=== PATIENT | female | born 1955 | race American Indian/Alaskan Native ===

== ENCOUNTER 2016-09-23 20:52 | Emergency (ER) | payer SELFPAY ==
[2016-09-23 21:44] VITALS: BP 227/102
--- NOTE | 2016-09-23 22:25 | Emergency Department Report ---
ED General Adult HPI - General Chief complaint: High BP Stated complaint: TOOTH ABSCESS Time Seen by Provider: 09/23/16 21:43 Source: patient, RN notes reviewed Mode of arrival: Ambulatory Limitations: No Limitations - History of Present Illness Initial comments: This is a 61-year-old female. She is previously known to me. She does not have a primary care doctor. She denies chronic medical conditions. She presents to the ER complaining of dental pain. She indicates the pain is on the right side of her teeth, and it is actually improved. There is no stridor or dysphonia. There is no trismus or malocclusion. No headache, chest pain, neck pain, abdominal pain or shortness of breath. The patient declines pain medication at this time. In the ER, the patient is found to be very hypertensive. She reports that she has been informed of elevated blood pressure in the past, but does not have a formal diagnosis of hypertension/elevated blood pressure. Extensive discussion had with the patient and her . I offered the patient medication to decrease her blood pressure, but she declined. Through shared decision making, myself and the patient feel it is reasonable for the patient to follow-up as an outpatient with the primary care doctor for incidental in a symptomatic elevated blood pressure. The patient understands that even if she is given medication here in the ER, her blood pressure will most likely elevated again. The patient has been informed that long-term complications of hypertension and elevated blood pressure, include stroke, heart attack, disability, and paralysis. The patient prefers to follow-up with an outpatient primary care doctor and she indicates that she will pursue diet and lifestyle modifications as she prefers to not take any prescription medications. -: Gradual Location: head Severity scale (0 -10): 10 Improves with: none Worsens with: none Associated Symptoms: denies other symptoms - Related Data Previous Rx's Medication Instructions Recorded Last Taken Type Chlorhexidine Mouthwash [Peridex] 15 ml MM BID #1 bottle 09/23/16 Unknown Rx Ibuprofen [Motrin] 600 mg PO Q8H PRN #30 tablet 09/23/16 Unknown Rx Allergies Allergy/AdvReac Type Severity Reaction Status Date / Time codeine Allergy Mild Dizziness Verified 09/23/16 21:15 caffeine Allergy Unknown Verified 09/23/16 21:36 procaine HCl [From Novocain] Allergy Unknown Verified 09/23/16 21:40 ED Review of Systems ROS: Stated complaint: TOOTH ABSCESS Other details as noted in HPI Constitutional: denies: fever Eyes: denies: vision change ENT: dental pain Respiratory: denies: cough Cardiovascular: denies: chest pain Gastrointestinal: denies: abdominal pain Genitourinary: as per HPI Musculoskeletal: as per HPI Skin: as per HPI Neurological: as per HPI Psychiatric: as per HPI ED Past Medical Hx - Past Medical History Previous Medical History?: No - Surgical History Past Surgical History?: No - Social History Smoking Status: Never Smoker Substance Use Type: None - Medications Home Medications: Home Medications Medication Instructions Recorded Confirmed Last Taken Type Chlorhexidine Mouthwash [Peridex] 15 ml MM BID #1 bottle 09/23/16 Unknown Rx Ibuprofen [Motrin] 600 mg PO Q8H PRN #30 tablet 09/23/16 Unknown Rx ED Physical Exam - General Limitations: No Limitations General appearance: alert, in no apparent distress - Head Head exam: Present: atraumatic, normocephalic - Eye Eye exam: Present: normal appearance, EOMI. Absent: nystagmus - ENT ENT exam: Present: normal exam, normal orophraynx, mucous membranes moist, other (patient has poor dentition. There is no stridor, dysphonia, trismus or malocclusion.) - Neck Neck exam: Present: normal inspection, full ROM. Absent: tenderness, meningismus - Respiratory Respiratory exam: Present: normal lung sounds bilaterally. Absent: respiratory distress, wheezes, rales, rhonchi, stridor, chest wall tenderness, accessory muscle use, decreased breath sounds, prolonged expiratory - Cardiovascular Cardiovascular Exam: Present: regular rate, normal rhythm, normal heart sounds. Absent: bradycardia, tachycardia, irregular rhythm, systolic murmur, diastolic murmur, rubs, gallop - GI/Abdominal GI/Abdominal exam: Present: soft, normal bowel sounds. Absent: distended, tenderness, guarding, rebound, rigid, pulsatile mass - Extremities Exam Extremities exam: Present: normal inspection, full ROM, normal capillary refill. Absent: pedal edema, joint swelling, calf tenderness - Back Exam Back exam: Present: normal inspection, full ROM. Absent: tenderness, CVA tenderness (R), CVA tenderness (L), muscle spasm, paraspinal tenderness, vertebral tenderness - Neurological Exam Neurological exam: Present: alert, oriented X3, normal gait, other (Extraocular movements intact. Tongue midline. No facial droop. Facial sensation intact to light touch in the V1, V2, V3 distribution bilaterally. 5 and 5 strength in 4 extremities.. Sensation is intact to light touch in 4 extremities.). Absent : motor sensory deficit - Psychiatric Psychiatric exam: Present: normal affect, normal mood - Skin Skin exam: Present: warm, dry, intact, normal color. Absent: rash ED Course Vital Signs 09/23/16 09/23/16 09/23/16 21:01 21:43 21:44 Temperature 99.6 F 99.2 F Pulse Rate 97 H 97 H Respiratory 18 20 20 Rate Blood Pressure 218/126 Blood Pressure 210/106 227/102 [Left] O2 Sat by Pulse 97 99 99 Oximetry - Reevaluation(s) Reevaluation #1: 09/23/16 22:28 as per the [employer] clinical policy on hypertension: Are ED blood pressure readings accurate and reliable for screening asymptomatic patients for hypertension? Level A recommendations. None specified. Level B recommendations. If blood pressure measurements are persistently elevated with a systolic blood pressure greater than 140 mm Hg or diastolic blood pressure greater than 90 mm Hg, the patient should be referred for follow- up of possible hypertension and blood pressure management. Level C recommendations. Patients with a single elevated blood pressure reading may require further screening for hypertension in the outpatient setting. 2. Do asymptomatic patients with elevated blood pressures benefit from rapid lowering of their blood pressure? Level A recommendations. None specified. Level B recommendations. (1) Initiating treatment for asymptomatic hypertension in the ED is not necessary when patients have follow-up; (2) Rapidly lowering blood pressure in asymptomatic patients in the ED is unnecessary and may be harmful in some patients; (3) When ED treatment for asymptomatic hypertension is initiated, blood pressure management should attempt to gradually lower blood pressure and should not be expected to be normalized during the initial ED visit. Critical care attestation.: If time is entered above; I have spent that time in minutes in the direct care of this critically ill patient, excluding procedure time. ED Disposition Clinical Impression: Dentalgia, Elevated blood pressure reading Disposition: DC-01 TO HOME OR SELFCARE Is pt being admited?: No Does the pt Need Aspirin: No Condition: Stable Instructions: Dental Caries (ED), Hypertension (ED) Additional Instructions: Follow up with a dentist as soon as possible. Follow up with a primary care doctor as soon as possible for elevated blood pressure. Long-term complications of hypertension/elevated blood pressure includes stroke, heart attack, disability, , paralysis, loss of quality of life. Return to the ER right away with headaches, fevers, chills, chest pain, shortness of breath, nausea or vomiting, confusion, inability to tolerate liquid feeds, inability to speak or breathe. Prescriptions: Chlorhexidine Mouthwash [Peridex] 15 ml MM BID #1 bottle Ibuprofen [Motrin] 600 mg PO Q8H PRN #30 tablet PRN Reason: Pain Referrals: PRIMARY CAREMD [Primary Care Provider] - 3-5 Days MINGO MENDEZ MD [Staff Physician] - 3-5 Days [facility] [Outside] - 3-5 Days [facility] [Provider Group] - 3-5 Days
== END 2016-09-23 22:38 | disposition home or self-care (01) ==
LOC: ED 20:52
DX: K08.89 Other specified disorders of teeth and supporting structures (principal); I10 Essential (primary) hypertension; Z88.5 Allergy status to narcotic agent; Z91.02 Food additives allergy status
CPT/HCPCS: 99282

== ENCOUNTER 2018-07-06 11:33 | Emergency (ER) | payer OTHER ==
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
--- NOTE | 2018-07-06 13:26 | XRay Report ---
BILATERAL KNEES, 3 VIEWS History: Bilateral knee pain. Findings: There is borderline bone mineralization. Mild to moderate osteoarthritic changes are identified in both knees. The patellofemoral spaces appear most affected in both knees. There is moderate tibial spine spurring as well. No evidence for fracture, bone lesion or large joint effusion. Impression: Mild to moderate osteoarthritis. No acute process identified.
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
[2018-07-06] MEDS ORDERED: CATAPRES PO ONE (15:05)
[2018-07-06 16:29] VITALS: BP 178/88
== END 2018-07-06 16:39 | disposition home or self-care (01) ==
LOC: ED 11:33
DX: S80.02XA Contusion of left knee, initial encounter (principal); S80.01XA Contusion of right knee, initial encounter; I10 Essential (primary) hypertension; E66.9 Obesity, unspecified; Z68.41 Body mass index [BMI] 40.0-44.9, adult; Z88.5 Allergy status to narcotic agent; Z91.018 Allergy to other foods; W22.8XXA Striking against or struck by other objects, initial encounter; Y93.89 Activity, other specified; Y92.488 Other paved roadways as the place of occurrence of the external cause; Y99.8 Other external cause status
CPT/HCPCS: 99283